=== PATIENT | male | born 1960 | race African-American/Black ===

== ENCOUNTER 2022-12-14 16:55 | Emergency (ER) | payer BC ==
[~2022-12-14] VITALS: Ht 167.6 cm; Wt 70.3 kg
[2022-12-14 17:12] VITALS: TEMP 98.8
[2022-12-14 18:56] LABS: PLATELET COUNT 321 K/uL (142-355)
[2022-12-14 19:06] LABS: POTASSIUM 3.9 mmol/L (3.6-5.2)
[2022-12-14 19:35] VITALS: BP 176/92
== END 2022-12-14 19:35 | disposition home or self-care (01) ==
LOC: ED 16:55
PROVIDERS: Emergency Medicine
DX: B34.9 Viral infection, unspecified (principal)
CPT/HCPCS: 36415; 80053; 85027; 87502; 87635; 99283; U0001